=== PATIENT | female | born 1980 | race Asian ===

== ENCOUNTER 2016-05-22 15:34 | Emergency (ER) | payer OTHER, MEDICAID ==
[~2016-05-22] VITALS: Ht 160 cm; Wt 59.0 kg
[2016-05-22 15:37] VITALS: BP 102/62; PULSE 77; RESP 20; TEMP 98.2; O2SAT 96
--- NOTE | 2016-05-22 17:40 | PD ---
HPI Chief Complaint: Headache Time Seen by Provider: 17:36 Travel History International Travel<30 days: No Contact w/Intl Traveler<30days: No Traveled to known affect area: No History of Present Illness HPI 35-year-old female presents to the emergency department for evaluation of headache after a half gallon of milk fell on her head. Patient states she was shopping when a half, milk fell from a shelf and hit her in the head. She denies swelling over any LOC. She reports headache at this time. She has no chronic medical problems and takes no prescribed medications. She has no history of bleeding disorders and takes no anticoagulants. She has had no vomiting. No amnesia. She has no other complaints. She denies any chance of . PFS Past Medical History Diminished Hearing: No : 4 Para: 3 Miscarriage: 0 : 0 Past Surgical History Section: Yes (X3) Social History Alcohol Use: No Tobacco Use: No Substance Use: No Allergies-Medications (Allergen,Severity, Reaction): Coded Allergies: No Known Allergies (Unverified , 05/22/16) Reported Meds & Prescriptions Reported Meds & Active Scripts Active No Active Prescriptions or Reported Medications Review of Systems Except as stated in HPI: all other systems reviewed are Neg Physical Exam Narrative GENERAL: Well-developed well-nourished female patient, in ambulatory. Afebrile. SKIN: Warm and dry. No lacerations or abrasions. HEAD: Normocephalic. Atraumatic. EYES: No scleral icterus. No injection or drainage. NECK: Supple, trachea midline. No JVD or lymphadenopathy. CARDIOVASCULAR: Regular rate and rhythm without murmurs, gallops, or rubs. RESPIRATORY: Breath sounds equal bilaterally. No accessory muscle use. Lungs sounds are clear to auscultation. GASTROINTESTINAL: Abdomen soft, non-tender, nondistended. MUSCULOSKELETAL: No cyanosis, or edema. BACK: Nontender without obvious deformity. No CVA tenderness. Data Data Last Documented VS Vital Signs Date Time Temp Pulse Resp B/P Pulse Ox O2 Delivery O2 Flow Rate FiO2 05/22/16 15:37 98.2 77 20 102/62 96 Room Air Orders Ibuprofen (Motrin) (05/22/16 17:45) [facility] Medical Decision Making Medical Screen Exam Complete: Yes Emergency Medical Condition: Yes Medical Record Reviewed: Yes Differential Diagnosis Minor head injury versus intracranial abnormality versus contusion Narrative Course 35-year-old female presents to the emergency department for evaluation after half-gallon milk fell on her head. Patient had no LOC. According the [place] CT head rules, imaging is not indicated at this time. I discussed this with the patient. I instructed her on warning symptoms that she should immediately return to the emergency department.. Patient is given ibuprofen 600 mg by mouth in the emergency department. She is to take Tylenol/ibuprofen at home as needed for pain. The patient is agreeable. Diagnosis Primary Impression: Minor head injury without loss of consciousness Qualified Code: S09.90XA - Minor head injury without loss of consciousness, initial encounter Referrals: Primary Care Physician call for appointment Patient Instructions: General Instructions, Head Injury (ED) Additional Instructions: Tylenol/ibuprofen for pain. Follow-up with your primary care physician. Return to the emergency department for any acute worsening of symptoms. Med/Other Pt SpecificInfo: No Change to Meds Scripts No Active Prescriptions or Reported Meds Disposition: 01 DISCHARGE HOME Condition: Stable Kenia Matos May 22, 2016 17:40
[2016-05-22] MEDS ORDERED: IBUPROFEN 600 MG TAB PO ONE (17:45)
== END 2016-05-22 18:11 | disposition home or self-care (01) ==
LOC: NEPB 15:34
DX: S09.90XA Unspecified injury of head, initial encounter (principal); W20.8XXA Other cause of strike by thrown, projected or falling object, initial encounter; Y93.89 Activity, other specified; Y92.512 Supermarket, store or market as the place of occurrence of the external cause
CPT/HCPCS: 99282